=== PATIENT | male | born 1935 | race Caucasian/White ===

== ENCOUNTER 2021-12-14 16:05 | Inpatient (IN) ==
[2021-12-14 17:35] LABS: Basophils % 0.7 %; Eosinophils # 0.3 K/mcL (0.0-0.6); Eosinophils % 4.9 %; Hematocrit 26.7 % (37.5-50.1); Hemoglobin 8.4 g/dL (12.9-16.9); Immature Granulocytes % 0.4 % (0-4); Lymphocytes # 0.8 K/mcL (0.6-4.6); Lymphocytes % 14.4 %; Mean Corpuscular HGB Conc 31.5 g/dL (31.6-35.5); Mean Corpuscular Hemoglobin 25.9 pg (28.0-33.3); Mean Corpuscular Volume 82.4 fL (83.0-100.0); Monocytes # 0.8 K/mcL (0.0-1.3); Monocytes % 14.6 %; Neutrophils # 3.6 K/mcL (1.6-8.9); Platelet Count 158 K/mcL (140-400); Red Blood Count 3.24 M/mcL (4.19-5.50); Red Cell Distribution Width 19.4 % (11.5-14.5); White Blood Count 5.6 K/mcL (4.3-11.1)
[2021-12-14 17:56] LABS: BUN/Creatinine Ratio 16 (6-26); Blood Urea Nitrogen 22 mg/dL (8-23); Calcium 9.2 mg/dL (8.6-10.3); Carbon Dioxide 26 mEq/L (23-29); Chloride 102 mEq/L (98-107); Glucose 139 mg/dL (70-105); Osmolality,Calculated 290 (280-300); Potassium 3.9 mEq/L (3.5-5.1); Sodium 137 mEq/L (136-145); eGFR For African Americans > 60 (> 60); eGFR For Non-African Americans 50 (> 60)
[2021-12-14 18:00] LABS: Troponin I 0.09 ng/mL (< 0.04)
[2021-12-14] MEDS ORDERED: Furosemide 20 MG/2 ML VIAL IVP ONE (18:22)
[2021-12-14 18:41] LABS: Influenza A PCR Negative (Negative); Influenza B PCR Negative (Negative); Resp. Syncytial Virus PCR Negative (Negative)
[2021-12-14 18:45] LABS: SARS-CoV-2 by PCR (In House) Negative (Negative)
[2021-12-14] MEDS ORDERED: Aspirin 325 MG TABLET PO ONE (20:22)
[2021-12-14] MEDS ORDERED: Acetaminophen 325 MG TABLET PO PRN (20:45)
[2021-12-14] MEDS ORDERED: Naloxone 0.4 MG/ML INJ IVP PRN (20:45)
[2021-12-14] MEDS ORDERED: Ondansetron ODT 4 MG TAB.RAPDIS SL PRN (20:45)
[2021-12-14] MEDS ORDERED: Ipratropium/Albuterol Neb 3 ML IH PRN (20:48)
[2021-12-15 00:20] LABS: Bilirubin,Urine Negative (Negative); Blood,Urine Negative (Negative); Clarity,Urine Clear (Clear); Color,Urine Colorless (Yellow); Glucose,Urine (UA) Normal (Normal); Ketones,Urine Negative (Negative); Leukocyte Esterase,Urine Negative (Negative); Nitrite,Urine Negative (Negative); Protein,Urine Negative (Neg-Trace); Specific Gravity,Urine 1.009 (1.010-1.025); Urobilinogen,Urine Normal (Normal)
[2021-12-15] MEDS: Levothyroxine 25 MCG TABLET PO SCH (05:20)
[2021-12-15 07:01] LABS: Eosinophils # 0.6 K/mcL (0.0-0.6); Hematocrit 28.7 % (37.5-50.1); Hemoglobin 9.1 g/dL (12.9-16.9); Mean Corpuscular HGB Conc 31.7 g/dL (31.6-35.5); Mean Corpuscular Hemoglobin 25.6 pg (28.0-33.3); Mean Corpuscular Volume 80.8 fL (83.0-100.0); Mean Platelet Volume 9.7 fL (9.4-12.4); Platelet Count 168 K/mcL (140-400); Red Blood Count 3.55 M/mcL (4.19-5.50); Red Cell Distribution Width 19.4 % (11.5-14.5); White Blood Count 5.3 K/mcL (4.3-11.1)
[2021-12-15 07:12] LABS: INR 1.8; Prothrombin Time 20.1 Seconds (9.4-12.1)
[2021-12-15 07:40] LABS: % Iron Saturation 5 % (20-55); BUN/Creatinine Ratio 18 (6-26); Blood Urea Nitrogen 23 mg/dL (8-23); Calcium 9.2 mg/dL (8.6-10.3); Carbon Dioxide 28 mEq/L (23-29); Chloride 101 mEq/L (98-107); Chol/HDL Ratio 4.5 (0-4.9); Cholesterol 152 mg/dL (< 200); Glucose 104 mg/dL (70-105); HDL Cholesterol 34 mg/dL (40-59); Iron 20 mcg/dL (65-175); LDL Cholesterol,Calculated 106 mg/dL (< 100); Lactate Dehydrogenase 143 Units/L (140-271); Magnesium 1.2 mg/dL (1.6-2.6); Osmolality,Calculated 290 (280-300); Potassium 3.4 mEq/L (3.5-5.1); Sodium 138 mEq/L (136-145); Thyroid Stimulating Hormone 5.232 mcIU/mL (0.340-5.600); Transferrin 273 mg/dL (203-362); Triglycerides 62 mg/dL (< 150); Troponin I 0.07 ng/mL (< 0.04); eGFR For African Americans > 60 (> 60); eGFR For Non-African Americans 53 (> 60)
[2021-12-15 07:55] LABS: Ferritin 26 ng/mL (20-250); Folate > 22.3 ng/mL (3.0-16.0); Vitamin B12 217 pg/mL (250-1100)
[2021-12-15] MEDS: Magnesium Oxide 400 MG TABLET PO SCH ×2 (07:58→19:44)
[2021-12-15] MEDS: atenoloL 25 MG TABLET PO SCH (07:58)
[2021-12-15] MEDS: Apixaban 5 MG TABLET PO SCH ×2 (07:58→19:44)
[2021-12-15] MEDS: Isosorbide MONOnitrate (24 HR) 30 MG TAB.ER.24H PO SCH (07:58)
[2021-12-15] MEDS ORDERED: Furosemide 20 MG/2 ML VIAL IVP ONE (08:10)
[2021-12-15] MEDS ORDERED: Perflutren Lipid Microsphere 1.3 ML in 0.9 % Sodium Chloride 8.7 ML IVP PRN (08:11)
[2021-12-15 08:18] LABS: Basophils # 0.1 K/mcL (0.0-0.2); Lymphocytes # 0.7 K/mcL (0.6-4.6); Monocytes # 0.4 K/mcL (0.0-1.3); Neutrophils # 3.5 K/mcL (1.6-8.9); Platelet Estimate Normal (Normal); Reactive Lymphocytes Present (Not Present)
[2021-12-15 09:42] LABS: Estimated Average Glucose 154 mg/dl
[2021-12-15] MEDS: Furosemide 40 MG TABLET PO SCH (10:41)
[2021-12-15] MEDS: Cyanocobalamin (B-12) 1,000 MCG TABLET PO SCH (10:46)
[2021-12-16 01:13] LABS: Basophils % 0.6 %; Eosinophils # 0.5 K/mcL (0.0-0.6); Eosinophils % 7.6 %; Hematocrit 28.4 % (37.5-50.1); Immature Granulocytes % 0.3 % (0-4); Lymphocytes # 1.1 K/mcL (0.6-4.6); Mean Corpuscular HGB Conc 31.7 g/dL (31.6-35.5); Mean Corpuscular Hemoglobin 25.4 pg (28.0-33.3); Mean Corpuscular Volume 80.2 fL (83.0-100.0); Mean Platelet Volume 9.8 fL (9.4-12.4); Monocytes % 15.8 %; Neutrophils # 3.7 K/mcL (1.6-8.9); Platelet Count 174 K/mcL (140-400); Red Blood Count 3.54 M/mcL (4.19-5.50); Red Cell Distribution Width 19.1 % (11.5-14.5); Segmented Neutrophils % 58.7 %; White Blood Count 6.3 K/mcL (4.3-11.1)
[2021-12-16 01:29] LABS: Alanine Aminotransferase 5 Units/L (7-52); Albumin 3.7 g/dL (3.5-5.7); Albumin/Globulin Ratio 1.4 (1.1-2.2); Alkaline Phosphatase 59 Units/L (34-104); Aspartate Amino Transferase 11 Units/L (13-39); BUN/Creatinine Ratio 17 (6-26); Bilirubin,Total 0.6 mg/dL (0.3-1.0); Blood Urea Nitrogen 23 mg/dL (8-23); Carbon Dioxide 29 mEq/L (23-29); Chloride 99 mEq/L (98-107); Globulin 2.6 g/dL (2.4-3.5); Glucose 169 mg/dL (70-105); Osmolality,Calculated 290 (280-300); Potassium 3.6 mEq/L (3.5-5.1); Sodium 136 mEq/L (136-145); Total Protein 6.3 g/dL (6.4-8.9); eGFR For African Americans > 60 (> 60); eGFR For Non-African Americans 51 (> 60)
[2021-12-16] MEDS: Levothyroxine 25 MCG TABLET PO SCH (04:55)
[2021-12-16 08:12] LABS: Magnesium 1.3 mg/dL (1.6-2.6); Troponin I 0.06 ng/mL (< 0.04)
[2021-12-16] MEDS: atenoloL 25 MG TABLET PO SCH (08:46)
[2021-12-16] MEDS: Isosorbide MONOnitrate (24 HR) 30 MG TAB.ER.24H PO SCH (08:46)
[2021-12-16] MEDS: Cyanocobalamin (B-12) 1,000 MCG TABLET PO SCH (08:46)
[2021-12-16] MEDS: Magnesium Oxide 400 MG TABLET PO SCH ×2 (08:46→20:37)
[2021-12-16] MEDS: Apixaban 5 MG TABLET PO SCH ×2 (08:46→20:37)
[2021-12-16] MEDS: Furosemide 40 MG TABLET PO SCH (08:46)
[2021-12-17 03:48] LABS: Basophils % 0.5 %; Eosinophils # 0.6 K/mcL (0.0-0.6); Hematocrit 28.8 % (37.5-50.1); Hemoglobin 9.2 g/dL (12.9-16.9); Immature Granulocytes % 0.2 % (0-4); Lymphocytes # 1.3 K/mcL (0.6-4.6); Lymphocytes % 20.6 %; Mean Corpuscular HGB Conc 31.9 g/dL (31.6-35.5); Mean Corpuscular Hemoglobin 25.7 pg (28.0-33.3); Mean Corpuscular Volume 80.4 fL (83.0-100.0); Monocytes % 15.8 %; Neutrophils # 3.3 K/mcL (1.6-8.9); Platelet Count 178 K/mcL (140-400); Red Blood Count 3.58 M/mcL (4.19-5.50); Red Cell Distribution Width 18.6 % (11.5-14.5); Segmented Neutrophils % 53.9 %; White Blood Count 6.2 K/mcL (4.3-11.1)
[2021-12-17 04:20] LABS: Alanine Aminotransferase 5 Units/L (7-52); Albumin 3.7 g/dL (3.5-5.7); Albumin/Globulin Ratio 1.4 (1.1-2.2); Alkaline Phosphatase 54 Units/L (34-104); Aspartate Amino Transferase 11 Units/L (13-39); BUN/Creatinine Ratio 15 (6-26); Bilirubin,Total 0.6 mg/dL (0.3-1.0); Blood Urea Nitrogen 20 mg/dL (8-23); Calcium 9.1 mg/dL (8.6-10.3); Carbon Dioxide 30 mEq/L (23-29); Chloride 99 mEq/L (98-107); Globulin 2.7 g/dL (2.4-3.5); Glucose 123 mg/dL (70-105); Osmolality,Calculated 288 (280-300); Potassium 3.6 mEq/L (3.5-5.1); Sodium 137 mEq/L (136-145); Total Protein 6.4 g/dL (6.4-8.9); eGFR For African Americans > 60 (> 60); eGFR For Non-African Americans 51 (> 60)
[2021-12-17] MEDS: Levothyroxine 25 MCG TABLET PO SCH (06:11)
[2021-12-17] MEDS: Cyanocobalamin (B-12) 1,000 MCG TABLET PO SCH (12:01)
[2021-12-17] MEDS: Isosorbide MONOnitrate (24 HR) 30 MG TAB.ER.24H PO SCH (12:01)
[2021-12-17] MEDS: Apixaban 5 MG TABLET PO SCH ×2 (12:01→21:38)
[2021-12-17] MEDS: Furosemide 40 MG TABLET PO SCH (12:02)
[2021-12-17] MEDS: atenoloL 25 MG TABLET PO SCH (12:02)
[2021-12-17] MEDS: Magnesium Oxide 400 MG TABLET PO SCH ×2 (12:02→21:38)
[2021-12-17] MEDS ORDERED: Metoprolol XL (24 HR) Succ 50 MG TAB.ER.24H PO SCH (14:00)
[2021-12-18 01:11] VITALS: PULSE 77
[2021-12-18] MEDS: Levothyroxine 25 MCG TABLET PO SCH (06:46)
[2021-12-18 06:47] LABS: Basophils % 0.5 %; Eosinophils # 0.6 K/mcL (0.0-0.6); Hematocrit 29.5 % (37.5-50.1); Hemoglobin 9.5 g/dL (12.9-16.9); Immature Granulocytes % 0.2 % (0-4); Lymphocytes # 1.4 K/mcL (0.6-4.6); Mean Corpuscular HGB Conc 32.2 g/dL (31.6-35.5); Mean Corpuscular Hemoglobin 25.5 pg (28.0-33.3); Mean Corpuscular Volume 79.3 fL (83.0-100.0); Mean Platelet Volume 9.8 fL (9.4-12.4); Monocytes % 16.4 %; Neutrophils # 3.2 K/mcL (1.6-8.9); Platelet Count 213 K/mcL (140-400); Red Blood Count 3.72 M/mcL (4.19-5.50); Red Cell Distribution Width 18.6 % (11.5-14.5); Segmented Neutrophils % 51.9 %; White Blood Count 6.2 K/mcL (4.3-11.1)
[2021-12-18 06:58] LABS: Albumin 3.9 g/dL (3.5-5.7); Albumin/Globulin Ratio 1.5 (1.1-2.2); Bilirubin,Total 0.6 mg/dL (0.3-1.0); Calcium 9.7 mg/dL (8.6-10.3); Globulin 2.6 g/dL (2.4-3.5); Magnesium 1.6 mg/dL (1.6-2.6); Potassium 3.7 mEq/L (3.5-5.1); Total Protein 6.5 g/dL (6.4-8.9)
[2021-12-18 07:07] VITALS: BP 133/69; TEMP 97.4; O2SAT 98
[2021-12-18] MEDS ORDERED: Metoprolol XL (24 HR) Succ 50 MG TAB.ER.24H PO SCH (09:00)
[2021-12-18] MEDS: Isosorbide MONOnitrate (24 HR) 30 MG TAB.ER.24H PO SCH (09:40)
[2021-12-18] MEDS: Furosemide 40 MG TABLET PO SCH (09:40)
[2021-12-18] MEDS: Cyanocobalamin (B-12) 1,000 MCG TABLET PO SCH (09:40)
[2021-12-18] MEDS: Magnesium Oxide 400 MG TABLET PO SCH (09:41)
[2021-12-18] MEDS: Apixaban 5 MG TABLET PO SCH (09:41)
== END 2021-12-18 11:55 | disposition home or self-care (01) | DRG 280 ==
LOC: EMEROOARM 16:05 → 3BNU 16:05
PROVIDERS: ADMIT Student in an Organized Health Care Education/Training Program; ATTEND Student in an Organized Health Care Education/Training Program